=== PATIENT | female | born 1950 | race Caucasian/White ===

== ENCOUNTER 2018-08-31 11:36 | Emergency (ER) | payer MEDICARE ==
[~2018-08-31] VITALS: Ht 170.2 cm; Wt 76.7 kg
[2018-08-31] MEDS ORDERED: ASPIRIN 81 MG TABLET CHEW PO ONE (12:00)
[2018-08-31 12:20] LABS: BASOPHILS # (AUTO) 0.04 x10^3/uL (0-0.1); BASOPHILS % (AUTO) 1 % (0-1); EOSINOPHILS # (AUTO) 0.07 x10^3/uL (0-0.4); EOSINOPHILS % (AUTO) 1 % (1-7); LYMPHOCYTES % (AUTO) 11 % (22-44); MD NO; MEAN CORPUSCULAR HEMOGLOBIN 27.4 pg (27.0-34.8); MEAN CORPUSCULAR HGB CONC 31.6 g/dL (32.4-35.8); MEAN CORPUSCULAR VOLUME 86.7 fL (80-100); MEAN PLATELET VOLUME 7.5 fL (7.4-10.4); MONOCYTES # (AUTO) 0.64 x10^3/uL (0.2-0.8); MONOCYTES % (AUTO) 8 % (2-9); NEUTROPHILS # (AUTO) 6.87 x10^3/uL (1.8-6.8); NEUTROPHILS % (AUTO) 81 % (42-75); PLATELET COUNT 223 x10^3/uL (130-400); RED BLOOD COUNT 4.28 x10^6/uL (3.82-5.3); RED CELL DISTRIBUTION WIDTH 14.6 % (9.6-15.2)
[2018-08-31 12:30] LABS: ALBUMIN 3.4 g/dL (3.4-5.0); ANION GAP 6 mmol/L (5-15); CALCIUM 9.3 mg/dL (8.5-10.1); CHLORIDE 107 mmol/L (98-107); CREATININE 0.78 mg/dL (0.55-1.02)
[2018-08-31 12:34] LABS: TROPONIN I < 0.015 ng/mL (0.000-0.045)
--- NOTE | 2018-08-31 12:55 | NUR ---
[employer]: PT TO ROOM FROM LOBBY, UPRIGHT STEADY GAIT.
--- NOTE | 2018-08-31 13:03 | NUR ---
pt presented to ed with chest pain and back pain since last night. pt a&Ox4 and placed on bp, cardiac and cont. pulse oximeter. assessment completed. md at bedside. call light in reach.
[2018-08-31] MEDS ORDERED: LEVOFLOXACIN/PMX 750MG/150ML 150 ML IVPB ONE (13:30)
--- NOTE | 2018-08-31 13:59 | NUR ---
pt taken to ct scan
[2018-08-31] MEDS ORDERED: OMNIPAQUE 350 MG/ML, 100ML BOTTLE ONE (14:12)
[2018-08-31] MEDS ORDERED: ASPIRIN 81 MG TABLET CHEW ONE (14:29)
[2018-08-31] MEDS ORDERED: LEVOFLOXACIN/PMX 750MG/150ML 150 ML ONE (14:30)
--- NOTE | 2018-08-31 14:36 | NUR ---
pt back from ct. blood cultures drawn and antibiotics hung per md order .
[2018-08-31 16:51] VITALS: BP 124/76
== END 2018-08-31 16:53 | disposition home or self-care (01) ==
LOC: ED 13:36
DX: J15.9 Unspecified bacterial pneumonia (principal); R07.89 Other chest pain
CPT/HCPCS: 36415; 71045; 71275; 80048; 82040; 84484; 85025; 87040; 93005; 96365; 96366; 99284; J1956; Q9967

== ENCOUNTER 2019-03-19 10:36 | Emergency (ER) | payer MEDICARE ==
[~2019-03-19] VITALS: Ht 170.2 cm; Wt 76.6 kg
--- NOTE | 2019-03-19 11:03 | NUR ---
PT TO ED FOR BLOODY COUGH AND BACK PAIN RELATED TO COUGH . PT RECENTLY DIAGNOSED WTIH BRONCHITIS AND FINISHED LEVOFLOXACIN 10-DAY COURSE TODAY. PT REPORTS BLOODY SPUTUM AND COUGH GETTING WORSE. PT CONNECTED TO MONITORS. VSS. NO NEEDS EXPRESSED. DR. CONNELLY TO FOR ASSESSMENT. AWAITING ORDERS.
--- NOTE | 2019-03-19 11:15 | NUR ---
orders received. vss. piv established and labs drawn. awaiting resutls, xr and ct. no needs expressed. call light within reach.
[2019-03-19 11:46] LABS: BASOPHILS # (AUTO) 0.05 x10^3/uL (0-0.1); BASOPHILS % (AUTO) 1 % (0-1); EOSINOPHILS % (AUTO) 4 % (1-7); LYMPHOCYTES # (AUTO) 1.08 x10^3/uL (1-3.4); LYMPHOCYTES % (AUTO) 20 % (22-44); MD NO; MEAN CORPUSCULAR HEMOGLOBIN 28.9 pg (27.0-34.8); MEAN CORPUSCULAR HGB CONC 32.2 g/dL (32.4-35.8); MEAN CORPUSCULAR VOLUME 89.6 fL (80-100); MEAN PLATELET VOLUME 8.1 fL (7.4-10.4); MONOCYTES # (AUTO) 0.49 x10^3/uL (0.2-0.8); MONOCYTES % (AUTO) 9 % (2-9); NEUTROPHILS # (AUTO) 3.51 x10^3/uL (1.8-6.8); NEUTROPHILS % (AUTO) 66 % (42-75); PLATELET COUNT 234 x10^3/uL (130-400); RED BLOOD COUNT 4.22 x10^6/uL (3.82-5.3); RED CELL DISTRIBUTION WIDTH 13.9 % (9.6-15.2)
[2019-03-19 11:55] LABS: ALANINE AMINOTRANSFERASE 20 U/L (12-78); ALBUMIN 3.2 g/dL (3.4-5.0); ANION GAP 7 mmol/L (5-15); CALCIUM 9.2 mg/dL (8.5-10.1); CHLORIDE 111 mmol/L (98-107); CREATININE 0.55 mg/dL (0.55-1.02); D-DIMER 0.61 ug/mlFEU (0.00-0.52); PROTHROMBIN TIME 10.5 Seconds (9.6-11.5)
[2019-03-19 11:59] LABS: ALKALINE PHOSPHATASE 129 U/L (45-117); BILIRUBIN,TOTAL 0.6 mg/dL (0.2-1.0); TOTAL PROTEIN 7.4 g/dL (6.4-8.2)
--- NOTE | 2019-03-19 12:15 | NUR ---
pt to ct.
--- NOTE | 2019-03-19 12:35 | NUR ---
pt back from ct.
[2019-03-19] MEDS ORDERED: OMNIPAQUE 350 MG/ML, 100ML BOTTLE ONE (12:36)
[2019-03-19 13:50] VITALS: BP 131/81
--- NOTE | 2019-03-19 13:51 | NUR ---
PT RESTING IN ROOM. VSS. NO NEEDS EXPRESSED. CALL LIGHT WITHIN REACH. AWAITING RECHECK.
--- NOTE | 2019-03-19 13:55 | NUR ---
Dr. Greenwood to bs to upste on poc and results. awaiting dispo.
== END 2019-03-19 15:03 | disposition home or self-care (01) ==
LOC: ED 12:43
DX: J98.01 Acute bronchospasm (principal); C78.00 Secondary malignant neoplasm of unspecified lung
CPT/HCPCS: 36415; 71046; 71275; 80053; 84145; 85025; 85379; 85610; 85730; 93005; 99284; Q9967